=== PATIENT | female | born 1995 | race Caucasian/White ===

== ENCOUNTER → 2017-04-19 22:12 | Emergency (ER) | payer SELFPAY ==
[2017-04-19 22:32] VITALS: BP 108/63
--- NOTE | 2017-04-19 23:24 | ED ---
Ruddy Nguyen Rebecca, scribed for Marilyn Skelton MD on 04/19/17 at 2254 . Psychiatric Complaint - HPI Summary HPI Summary: Pt is a 21 y/o F BIBA who presents to ED s/p panic attack. At approximately 2230 the pt reports she had a panic attack, similar to prior incidences in the past. Reports she has had panic attacks "a lot of times." States LOC secondary to tachypnea during panic attack which is what prompted her friends to call EMS. Sx aggravated by nothing, alleviated by O2 from EMS [employer]. Pt's sx have now resolved. Pt has drank about 5 beers tonight and is currently camping. PMHx anxiety, depression. - History Of Current Complaint Chief Complaint: EDGeneral Hx Obtained From: Patient Onset/Duration: Resolved Severity Currently: None Character: Anxious - Panic attack [employer] Aggravating Factor(s): Nothing Alleviating Factor(s): Other - O2 Associated Signs And Symptoms: Positive: Negative Related History: Positive For: Prior Psychiatric Issues - Anxiety, depression PMH/Surg Hx/FS Hx/Imm Hx Endocrine/Hematology History: Denies: Hx Diabetes Cardiovascular History: Denies: Hx Hypertension Psychiatric History: Reports: Hx Anxiety, Hx Depression Infectious Disease History: No Infectious Disease History: Denies: Traveled Outside the [place] in Last 30 Days - Family History Known Family History: Positive: Hypertension - Social History Occupation: Student Substance Use Type: Reports: None Smoking Status (MU): Never Smoked Tobacco Review of Systems Positive: Other - tachypnea - resolved Neurological: Other - LOC secondary to tachypnea - resolved Positive: Other - Panic attack - resolved All Other Systems Reviewed And Are Negative: Yes Physical Exam - Summary Physical Exam Summary: General: Well appearing, no pain distress Skin: Warm, Skin Color Reflects Adequate Perfusion, Dry Eyes: EOMI, [place] ENT: Pharynx normal, TMs normal Neck: Supple, nontender Respiratory: CTA, breath sounds present, no rhonchi, no wheezes, no rales Cardiovascular: RRR, no murmur, no rub, no gallop Abdomen: Soft, nontender, Non-distended, no guarding, no rebound Bowel: Present Musculoskeletal: ARIANNA, No edema Neuro: Sensory/motor intact, A&Ox3, CN intact 2-12 Psych: Affect/mood appropriate Triage Information Reviewed: Yes Vital Signs On Initial Exam: Initial Vitals Temp Pulse Resp BP Pulse Ox 98.4 F 78 14 108/63 100 04/19/17 22:30 04/19/17 22:30 04/19/17 22:30 04/19/17 22:30 04/19/17 22:30 Vital Signs Reviewed: Yes Diagnostics - Vital Signs Vital Signs Temp Pulse Resp BP Pulse Ox 04/19/17 22:30 98.4 F 78 14 108/63 100 - Laboratory Lab Statement: Any lab studies that have been ordered have been reviewed, and results considered in the medical decision making process. Course/Dx - Course Course Of Treatment: 21 yo who was camping and drank 5 beers and had a panic attack she was brought in by ambulance and was calm after getting oxygen. she is very well appearing and the plan was for the pt and her accompanying boyfriend to have a sober ride come and pick them up. Pt eloped from the dept niether she nor her boyfriend drove here and they did mention that they would be getting a cab home but they were not expected to leave without the ED staff knowing the cab had arrived for them - Differential Dx/Clinical Impression Provider Diagnosis: Anxiety Discharge - Discharge Plan Condition: Stable Disposition: AGAINST MEDICAL ADVICE The documentation as recorded by the Ruddy narayanan Rebecca accurately reflects the service I personally performed and the decisions made by me, Marilyn Skelton MD.
== END | disposition left against medical advice (07) ==
LOC: ED 22:12
DX: F41.9 Anxiety disorder, unspecified (principal); Z53.21 Procedure and treatment not carried out due to patient leaving prior to being seen by health care provider
CPT/HCPCS: 99282